=== PATIENT | male | born 1950 | race Hispanic/Latino ===

== ENCOUNTER 2017-02-08 09:48 | Day surgery (SDC) | payer MEDICARE ==
[2017-02-01 13:32] VITALS: BMI 27.6
[2017-02-08 10:23] VITALS: RESP 18
[2017-02-08] MEDS ORDERED: Tetracaine 0.5% Ophth 2 ML BOTTLE ONE ×2 (14:16)
[2017-02-08] MEDS ORDERED: Maxitrol Opht Susp ONE (14:16)
[2017-02-08] MEDS ORDERED: Bupivacaine 0.25%-Epinephrine 1:200,000 (30 ml) Inj ONE (14:17)
[2017-02-08] MEDS ORDERED: Lidocaine 1% Inj (20ml) ONE (14:21)
[2017-02-08] MEDS ORDERED: Lidocaine 1% 20 MG/2 ML PF AMP ONE (14:21)
[2017-02-08] MEDS ORDERED: Lidocaine 1% Inj (20ml) IJ ONE (14:30)
[2017-02-08 15:19] VITALS: BP 151/91; PULSE 68; TEMP 98.4
[2017-02-08 15:42] VITALS: O2SAT 100
--- NOTE | 2017-02-13 13:33 | OP ---
PROCEDURE DATE: 02/08/2017 SURGEON: FRANCO KRUEGER MD ANESTHETIC TYPE: LOCAL PREOPERATIVE DIAGNOSIS: CHALAZION OF THE RIGHT UPPER LID POSTOPERATIVE DIAGNOSIS: CHALAZION OF THE RIGHT UPPER LID OPERATION: EXCISION OF CHALAZION. COMPLICATIONS: NONE DRAINS: NONE FLUIDS GIVEN: NONE PREPARATION AND PROCEDURE: After the patient was properly prepped and draped for sterile ophthalmic surgery, 2% Xylocaine with epinephrine was infiltrated into the upper lid. After adequate anesthesia was induced, a chalazion clamp was applied to the upper lid and the lid was everted. A #15 Media Radar-Dwight blade was utilized for incising through the tarsal conjunctiva into the substance of the necrotic chalazion. Copious amounts of purulent material was evacuated, and curettage was performed. The capsule of the chalazion was excised with sharp Carmen scissors. After proper evacuation of all the necrotic material, the clamp was released and Maxitrol Ophthalmic Ointment was applied to the eye and a pressure patch was subsequently applied. POSTOPERATIVE CONDITION:The patient was brought to the Recovery Room with stable vital signs. FRANCO KRUEGER MD [facility]
== END 2017-02-08 15:30 | disposition home or self-care (01) ==
LOC: H.OPSURG 09:48
PROVIDERS: ATTEND Ophthalmology
DX: H00.11 Chalazion right upper eyelid (principal)